=== PATIENT | male | born 1970 | race Caucasian/White ===

== ENCOUNTER 2017-07-08 06:03 | Day surgery (SDC) | payer OTHER ==
[2017-07-08] MEDS ORDERED: PROPOFOL 20 ML (06:50)
[2017-07-08] MEDS ORDERED: LIDOCAINE 1% (MDV) 20 ML INJ (06:50)
[2017-07-08] MEDS ORDERED: MIDAZOLAM 1 MG/ML 2 ML INJ (06:50)
[2017-07-08] MEDS ORDERED: FENTAnyl 50 MCG/ML VIAL (06:50)
[2017-07-08] MEDS: BUPIVACAINE 0.5% (SDV) 30 ML INJ (07:03)
[2017-07-08] MEDS: DEXAMETHASONE 4 MG/ML 1 ML INJ (07:03)
[2017-07-08] MEDS ORDERED: CEFAZOLIN 1 GM INJ ×2 (07:40→08:12)
[2017-07-08] MEDS ORDERED: ONDANSETRON 4 MG INJ (07:57)
[2017-07-08] MEDS ORDERED: ACETAMINOPHEN 1000MG/100ML IV 100 ML (07:57)
[2017-07-08] MEDS ORDERED: DEXAMETHASONE 4 MG/ML 1 ML INJ (07:57)
[2017-07-08] MEDS: POVIDONE IODINE 10% 28.4 GM OINT (08:13)
[2017-07-08] MEDS ORDERED: LABETALOL HCL 20MG INJ (08:19)
[2017-07-08] MEDS ORDERED: LABETALOL HCL 20MG INJ IV (08:30)
[2017-07-08] MEDS ORDERED: hydrALAzine 20 MG INJ IV (08:30)
[2017-07-08] MEDS ORDERED: HYDROmorphONE (0.2 MG/ML) 10ML SYG IV ×2 (08:30)
[2017-07-08] MEDS ORDERED: FENTAnyl 50 MCG/ML VIAL IV ×2 (08:30)
[2017-07-08] MEDS: ONDANSETRON 4 MG INJ IV (09:30)
[2017-07-08] MEDS: HYDROmorphONE (0.2 MG/ML) 10ML SYG IV ×4 (09:31→10:07)
[2017-07-08] MEDS: OXYCODONE/ACETAMINOPHEN (5/325) TAB PO (10:44)
== END 2017-07-08 11:00 | disposition home or self-care (01) ==
LOC: SDS 06:03
DX: M20.12 Hallux valgus (acquired), left foot (principal); M21.612 Bunion of left foot; M20.5X2 Other deformities of toe(s) (acquired), left foot; I10 Essential (primary) hypertension
CPT/HCPCS: 28122; 88304; 88311